=== PATIENT | male | born 1960 | race Caucasian/White ===

== ENCOUNTER 2018-07-15 10:06 | Inpatient (IN) | payer OTHER ==
--- NOTE | 2018-07-15 06:50 | PDHPUP ---
History & Physical Update H&P update statement: This history and physical update is based on an assessment of the patient which was completed after admission or registration (within 24 hours), but prior to the surgery/procedure. H&P update: H&P reviewed & patient examined, no change in patient's condition since H&P completed
[~2018-07-15 10:06] MED LIST: ceFAZolin 2 GM/DEXTROSE 100 ML IV SCH; diphenhydrAMINE 25 MG CAP PO PRN
[2018-07-15] MEDS ORDERED: GABAPENTIN 300 MG CAP PO ONE (10:16)
[2018-07-15] MEDS ORDERED: ceFAZolin 2 GM/DEXTROSE 100 ML IV ONE (10:16)
[2018-07-15] MEDS ORDERED: ACETAMINOPHEN 500 MG TAB PO ONE (10:16)
[2018-07-15] MEDS ORDERED: LIDOCAINE 1% 2 ML INJ ID PRN (10:19)
[2018-07-15] MEDS ORDERED: LR 1,000 ML IV ONE (10:19)
[2018-07-15] MEDS ORDERED: THROMBIN (BOVINE) 5,000 UNIT VIAL TP ONE (10:28)
[2018-07-15] MEDS ORDERED: BUPIVACAINE/EPI 0.25% 30 ML SDV ONE (10:28)
[2018-07-15] MEDS ORDERED: CHLORHEXIDINE GLUC HIBICLENS 118 ML BTL TP ONE (10:28)
[2018-07-15] MEDS ORDERED: BACITRACIN 50,000 UNITS/10 ML SYR IRR ONE (10:29)
[2018-07-15] MEDS ORDERED: morphINE PCA 30 MG/30 ML PCA IV PRN (12:04)
[2018-07-15] MEDS ORDERED: HYDROmorphONE/DILAUDID 1 MG/ML INJ IVP PRN (12:04)
[2018-07-15] MEDS ORDERED: POLYETHYLENE GLYCOL 3350 17 GM PKT PO PRN (12:04)
[2018-07-15] MEDS ORDERED: NALOXONE HCL 0.4 MG/ML INJ IVP PRN ×2 (12:04→16:36)
[2018-07-15] MEDS ORDERED: BISACODYL 10 MG SUPP PR PRN (12:04)
[2018-07-15] MEDS ORDERED: HYDROCODONE/APAP 5/325 TAB PO PRN (12:04)
[2018-07-15] MEDS ORDERED: LACTULOSE 20 GM/30 ML UDCUP PO PRN (12:04)
[2018-07-15] MEDS ORDERED: ONDANSETRON DISINTEGRATING 4 MG TAB PO PRN (12:04)
[2018-07-15] MEDS ORDERED: ONDANSETRON 4 MG/2 ML VIAL IVP PRN ×2 (12:04→16:36)
[2018-07-15] MEDS ORDERED: MIDAZOLAM 2 MG/2 ML VIAL IVP ONE (12:06)
--- NOTE | 2018-07-15 12:07 | PDANEPAE ---
ANE Past Medical History - Cardiovascular History Hx Hypertension: Yes Hx Arrhythmias: No Hx Chest Pain: No Hx Coronary Artery / Peripheral Vascular Disease: No Hx CHF / Valvular Disease: No Hx Palpitations: No - Pulmonary History Hx COPD: No Hx Asthma/Reactive Airway Disease: No Hx Recent Upper Respiratory Infection: Yes Hx Oxygen in Use at Home: No Hx Sleep Apnea: No Sleep Apnea Screening Result - Last Documented: Positive Pulmonary History Comment: SINUS INFECTION 03/2018 - Neurologic History Hx Cerebrovascular Accident: No Hx Seizures: No Hx Dementia: No - Endocrine History Hx Diabetes: No Hypothyroid: No Hyperthyroid: No Obesity: no - Renal History Hx Renal Disorders: No - Liver History Hx Hepatic Disorders: No - Neurological & Psychiatric Hx Hx Neurological and Psychiatric Disorders: Yes Neurological / Psychiatric History Comment: PANIC ATTACKS. ANXIETY - Cancer History Hx Cancer: No - Congenital Disorder History Hx Congenital Disorders: No - GI History Hx Gastrointestinal Disorders: Yes Gastrointestinal History Comment: ACID REFLUX WILL USE OTC - Other Health History Other Health History: CAPPED FRONT TEETH. DDD/STENOSIS. N/T MONCHO LEGS/FEET - Chronic Pain History Chronic Pain: Yes (LOWER BACK,SCIATICA,BACK OF BOTH LEGS) - Surgical History Prior Surgeries: TONSILLECTOMY ANE Review of Systems Review of Systems: - Exercise capacity METS (RN): 4 METS ANE Patient History - Allergies Allergies/Adverse Reactions: No Known Allergies Allergy (Verified 06/18/18 15:44) - Home Medications Home Medications: ALPRAZolam [Xanax 0.5 MG (*)] 0.5 mg PO DAILY PRN 06/18/18 [Last Taken 07/15/18 09:45] Lisinopril [Zestril 10 mg (*)] 10 mg PO DAILY 06/18/18 [Last Taken 1 Day Ago ~] Testosterone IM [Testosterone 100mg/ml IM inj (*)] 100 mg IM Q7D 06/18/18 [Last Taken 07/05/18] Zolpidem Tartrate [Ambien] 10 mg PO HS PRN 06/18/18 [Last Taken 1 Day Ago ~07/14] diphenhydrAMINE [Benadryl 25 MG (*)] 25 mg PO Q6H PRN 06/18/18 [Last Taken 1 Day Ago ~07/14/18] traMADol [Ultram 50 mg (*)] 50 mg PO DAILY PRN 06/18/18 [Last Taken 1 Day Ago ~ 07/14/18] - NPO status NPO Since - Liquids (Date): 07/15/18 NPO Since - Liquids (Time): 00:00 NPO Since - Solids (Date): 07/14/18 NPO Since - Solids (Time): 17:00 - Smoking Hx Smoking Status: Never smoked ANE Labs/Vital Signs - Vital Signs Blood Pressure: 124/95 Heart Rate: 88 Respiratory Rate: 18 O2 Sat (%): 98 Height: 173.99 cm Weight: 77.111 kg ANE Physical Exam - Airway Neck exam: FROM Mallampati Score: Class 1 Mouth exam: normal dental/mouth exam - Pulmonary Pulmonary: no respiratory distress - Cardiovascular Cardiovascular: regular rate and rhythym - ASA Status ASA Status: II ANE Anesthesia Plan Anesthesia Plan: general endotracheal anesthesia
[2018-07-15] MEDS ORDERED: PROPOFOL/EMULSION 500 MG/50 ML BOTTLE IV ONE (12:22)
[2018-07-15] MEDS ORDERED: ROCURONIUM 100 MG/10 ML VIAL ONE (12:23)
[2018-07-15] MEDS ORDERED: fentaNYL 250 MCG/5 ML INJ ONE (12:23)
[2018-07-15] MEDS ORDERED: LIDOCAINE 2% 100 MG/5 ML SYR ONE (12:23)
[2018-07-15] MEDS ORDERED: DEXAMETHASONE 4 MG/ML VIAL ONE (12:23)
[2018-07-15] MEDS ORDERED: ONDANSETRON 4 MG/2 ML VIAL ONE (12:23)
[2018-07-15] MEDS ORDERED: REMIFENTANIL HCL 1 MG VIAL ONE ×2 (12:23→16:28)
[2018-07-15] MEDS ORDERED: PROPOFOL 200 MG/20 ML VIAL ONE ×3 (12:28→16:27)
[2018-07-15] MEDS ORDERED: GLYCOPYRROLATE 0.2 MG/1 ML VIAL ONE (13:42)
[2018-07-15] MEDS ORDERED: ceFAZolin 1 GM VIAL ONE (16:33)
[2018-07-15] MEDS ORDERED: LR 500 ML IV PRN (16:36)
[2018-07-15] MEDS ORDERED: PROMETHAZINE HCL 25 MG/ML INJ IVP PRN (16:36)
--- NOTE | 2018-07-15 17:07 | POSTOPPROG ---
Post Op Note Date of Operation: 07/15/18 Surgeon: Alexy Munroe Family Services Assistant: DONA Joiner Anesthesiologist: Sameer Anesthesia: GET(General Endotracheal), Local (Specify) Pre-op Diagnosis: lumbar stenosis L3/4 and L4/5 Post-op Diagnosis: lumbar stenosis L3/4 and L4/5 Indication: LLE pain, lumbar stenosis Procedure: L3/4 and L4/4 TLIF Findings: see op note Inf/Abcess present in the surg proc area at time of surgery?: No Depth: Deep Incisional (Fascial) EBL: 100-500 Total fluids administered: see anesthesia record Complications: none Drains: Omid Buck
--- NOTE | 2018-07-15 17:07 | PDMN ---
Medical Necessity Medical necessity: [facility]: S820 lumbar fusion-3 days - OP: L3/4,L4/5 TLIF -[facility]# [id number] APPROVED FOR INPATIENT SURGERY FOR DOS 07/15/18-07/16/18.
--- NOTE | 2018-07-15 17:11 | SOAPPROG ---
SOAP Progress Note Assessment/Plan: Post Op Visit: S: Awake and alert. NAD. Pt with expected lower back pain O: AFVSS/PERRLA/EOMI no droop CN 2-12 grossly intact +lt touch 5/5 BUE/BLE = CDI ANGELES in place A/P: 58 yo male that is s/p TLIF L3/4 and L4/5 -orders in place -call with any questions or concerns -take medications as directed -pt seen by Dr Munroe as well -brace when out of bed Objective: Vital Signs Temp Pulse Resp BP Pulse Ox 36.4 C 88 18 124/95 H 98 07/15/18 10:44 07/15/18 12:06 07/15/18 12:06 07/15/18 12:06 07/15/18 12:06 ICD10 Worksheet Patient Problems: Problems Problem Status Onset Arthrodesis status Acute Lumbar radicular pain Acute Lumbar stenosis Acute - ICD10 Problem Qualifiers (1) Lumbar stenosis (2) Lumbar radicular pain (3) Arthrodesis status
[2018-07-15] MEDS ORDERED: LABETALOL HCL 5 MG/ML 20 ML MDV ONE (17:12)
[2018-07-15] MEDS ORDERED: fentaNYL 100 MCG/2 ML INJ ONE ×2 (17:12→17:33)
--- NOTE | 2018-07-15 17:13 | POSTANESTH ---
Post Anesthetic Evaluation Cardiovascular Status: Normal, Stable, Tx Hyper/Hypo-tension Respiratory Status: Normal, Stable Level of Consciousness/Mental Status: Can Participate in Eval Pain Control: Adequate, Prn Tx Ordered Nausea/Vomiting Control: Adequate, Prn Tx Ordered Complications Possibly Related to Anesthesia: None Noted
[2018-07-15] MEDS: fentaNYL 100 MCG/2 ML INJ IVP PRN ×3 (17:18→17:34)
[2018-07-15] MEDS ORDERED: LABETALOL HCL 5 MG/ML 20 ML MDV IVP PRN (17:28)
[2018-07-15] MEDS ORDERED: METHOCARBAMOL 750 MG TAB ONE (17:33)
[2018-07-15] MEDS: METHOCARBAMOL 750 MG TAB PO PRN (17:40)
[2018-07-15] MEDS ORDERED: ceFAZolin 2 GM/DEXTROSE 100 ML IV SCH (18:00)
--- NOTE | 2018-07-15 19:07 | GOP ---
DATE OF OPERATION: 07/15/2018 SURGEON: Florina Munroe MD CELEBRITY MANAGER: Jonnie Joiner PA-C PREOPERATIVE DIAGNOSIS: Lumbar spondylosis with a minimal lumbar degenerative scoliotic curve, lumba r facet arthropathy, lumbar severe foraminal stenosis (left L4-5), lumbar stenosis, lumbar disk degen erative disease, L3-4 and L4-5. POSTOPERATIVE DIAGNOSIS: Lumbar spondylosis with a minimal lumbar degenerative scoliotic curve, lumb ar facet arthropathy, lumbar severe foraminal stenosis (left L4-5), lumbar stenosis, lumbar disk dege nerative disease, L3-4 and L4-5. PROCEDURE PERFORMED: Posterolateral and intervertebral arthrodesis with decompressions bilaterally a t L3-4 and L4-5 ([id number] and [id number]); posterior segmental instrumentation L3, L4, L5; placement of biome chanical intervertebral device L3-4 and L4-5 (79180 x 2); spinal stereotactic, same incision bone gra ft harvest, microscope. FINDINGS: ESTIMATED BLOOD LOSS: 400 cc. INDICATIONS: The patient is a 58-year-old gentleman with terrible pain in the left leg. His MRI dem onstrated evidence of severe disk degenerative disease at L3-4, with a slightly right-sided tilt at L 3-4, but there was a large central prolapsed disk at that level with severe DDD, creating bilateral r ecess stenosis at L3-4. He also had bad facet arthropathy with excessive fluid in the facet joints a t L3-4 and L4-5. His MRI also showed degenerative L4-5 tilt to the left-hand side, with a prolapse o f the disk into the L4-5 neural foramen on the left, as well as lateral recess stenosis. There was s evere associated foraminal stenosis. I suggested a 2-level fusion based upon his disk disease and hi s terrible foraminal stenosis at L4-5. I was not going to be capable of doing a radical foraminal de compression of the exiting L4 root, which I thought was his most symptomatic level, without completel y removing the facet joint on the left at L4-5, destabilizing the spine. I was not comfortable doing this in the context of the changes already present at L3-4, as well as the stenosis at L3-4 and the severe disk degenerative disease, and I suggested decompression and fusion at that level as well. Th is would also allow us to open up the neural foramen and get some distraction of his disk space and r estoration of his lumbar lordosis at that level, at least that was the hope. The risk of continued s ymptoms, nerve injury, spinal fluid leak, screw and hardware malfunction, malposition, nerve injury, pseudoarthrosis, adjacent segment disease, and the possible need for future surgery at the surroundin g areas of the spine were discussed. He knew that sometimes revision surgery at the same area of the spine is necessary. He wanted to proceed despite these risks. DESCRIPTION OF PROCEDURE: The patient was taken to the operating room and placed in the supine posit ion. General anesthesia was begun. He was flipped prone onto the Omid table. Care was taken to pad all points of contact. His back was sterilely prepped and draped in the usual fashion. A locali zing x-ray was taken, and a midline incision was about 6 cm in length. The subcutaneous tissue was d issected using Bovie cautery, down through the fascia, and a subperiosteal dissection was made down t he lamina of L3, 4 and 5. A self-retaining retractor was placed. He had a lumbarized S1 vertebral b ziyad. Based upon that numbering scheme, we did an L3-4 and L4-5 fusion. We exposed L3-4 and L4-5. S hot-localizing x-rays denuded the bilateral facet joints at L3-4 and L4-5. We preserved the L2-3 fac et joint. There was a massive amount of fluid, particularly on the right-hand side at L3-4 in the fa cet joint, but there was also exuberant synovial fluid present at L4-5. After denuding the joints, w suellen then attached a stealth reference frame to the spinous process, performed an O-arm spin, and using frameless Stealth stereotaxy, we placed pedicle screws bilaterally at L3, L4, and L5. They all stimu lated at acceptable levels. The screw that stimulated the lowest was the right L3 screw, which was b ordering the L3 medial pedicle border. We did 3D imaging and it appeared to be in excellent position . It stimulated at a threshold of 12, which was considered acceptable, and the imaging characteristi cs of the screw were also favorable. Again, we did 3D O-arm imaging of the screw, and it appeared to be an excellent screw. We then placed rods down over the screws distracted on the right-hand side a t L3-4 and on the left-hand side at L4-5, and got spiritism of some lumbar lordosis as well as a re duction of his scoliotic curve at L3-4 and L4-5. With this technique, we final tightened the cap scr ews according to company specification, removed the soft tissue of the bone at L3-4 and L4-5, removed the entire L4 spinous process, part of the L3 spinous process, and drilled bilateral laminectomies a t L3-4 and L4-5, and harvested this bone for autologous grafting purposes. We opened the ligamentum flavum and performed bilateral decompressions at L3-4 and L4-5. We got great decompressions on each side. There was severe stenosis, both on the right and on the left, but we did complete facetectomie s on the left-hand side, and radically decompressed the exiting L3 root at L3-4 and the exiting L4 ro ot at L4-5, where indeed there was foraminal disk material in the neural foramen at L4-5. We cleaned all this out. We then swept the L5 nerve root medially, incised the disk, and removed the disk and the cartilaginous endplates. We roughened the subchondral bone to create arthrodesis at L4-5. Likemaricel issuellen, we did at L3-4, where we incised the disk, removed the disk, and the cartilaginous endplates and roughened the subchondral bone to create arthrodesis there. We packed bone autograft and BMP in bot h of the disk spaces, followed by an expandable 7 x 23 mm device. It was expanded under fluoroscopic guidance, and we achieved great position of the devices. There was a small amount of bleeding from the left foramen at L3-4; it was an epidural vein underneath the thecal sac; we placed a tiny piece o f Gelfoam underneath that. Then, we decorticated all the remaining bone posterolaterally bilaterally and placed a small piece of BMP and bone autograft posterolaterally bilaterally. We placed a subfas cial drain, and then closed the incision in multiple layers using Vicryl sutures. Steri-Strips were applied to the skin. The patient was reversed from anesthesia, extubated, and transferred to the rec overy room in stable condition. There were no complications. COMPLICATIONS: None. /[id number]/MODL
[2018-07-15] MEDS: ACETAMINOPHEN 500 MG TAB PO SCH ×2 (19:13→21:17)
[2018-07-15] MEDS: GABAPENTIN 300 MG CAP PO SCH ×2 (19:13→21:17)
[2018-07-15] MEDS: LISINOPRIL 10 MG TAB PO SCH (19:13)
[2018-07-15] MEDS: oxyCODONE IR 5 MG TAB PO PRN ×2 (19:31→20:30)
[2018-07-15] MEDS: FAMOTIDINE 20 MG TAB PO SCH (20:30)
[2018-07-15] MEDS: SENNOSIDES/DOCUSATE SODIUM TAB PO SCH (20:31)
[2018-07-15] MEDS: ZOLPIDEM TARTRATE 5 MG TAB PO PRN (21:17)
[2018-07-15] MEDS: NS 1,000 ML IV SCH (23:11)
[2018-07-15] MEDS: ceFAZolin 2 GM/DEXTROSE 100 ML IV SCH (23:11)
[2018-07-16] MEDS: oxyCODONE IR 5 MG TAB PO PRN ×5 (03:27→22:03)
[2018-07-16] MEDS: METHOCARBAMOL 750 MG TAB PO PRN ×2 (03:27→10:58)
[2018-07-16] MEDS ORDERED: NS 500 ML IV ONE (03:30)
[2018-07-16 04:45] LABS: PLATELET COUNT 158 10^3/uL (150-400)
[2018-07-16] MEDS: ACETAMINOPHEN 500 MG TAB PO SCH ×3 (05:34→22:01)
[2018-07-16] MEDS: GABAPENTIN 300 MG CAP PO SCH ×3 (05:35→22:00)
[2018-07-16] MEDS: NS 1,000 ML IV SCH (05:37)
--- NOTE | 2018-07-16 07:30 | NEUSURGPN ---
Date of Surgery: 07/15/18 Post Op Day: 1 Assessment/Plan: Assessment: 58 yo male that is s/p TLIF L3/4 and L4/5 POD#1 Plan: -ANGELES to bulb suction, leave in today. ANGELES output 405ml since surgery -H/H 33/11 this am. Patient was given 500ml NS bolus last night for mild hypotension. Doing well this am. Not symptomatic. -PT/OT -Pain management -Post op xrays pending -brace on when out of bed Patient was seen by Dr Munroe Please contact neurosurgery with any questions/concerns Subjective: toes are tingling, thinks this is related to NISREEN carmencitae Objective: AxO x4 MAEx4 5/5 BUE, BLE sensation intact to light touch BLE Dressing/incision CDI ANGELES patent Neuro Check Frequency: per routine Urinary Catheter in Place: No Catheter Insertion Date: 07/15/18 - Physician Discussed Patient with : Ludwig Patient Seen by : Ludwig Neurosurgery Physical Exam - Vitals, I&O, Labs I and O 07/15/18 07/16/18 07/17/18 05:59 05:59 05:59 Intake Total 6150 Output Total 1230 Balance 4920 Weight 77.111 kg Intake: Oral (ml) 1900 IV Intake (ml) 2700 IV Infused (ml) 1550 Lr 500 ml @ Wide Open IV 500 PRN PRN Rx#:[id number] Ns 1,000 ml @ 75 mls/hr 950 IV CONT MAKSIM Rx#: [id number] ceFAZolin 2 GM/DEXTROSE 100 100 ml @ 200 mls/hr IV ONCALL ONE Rx#:[id number] Output: Urine (ml) 425 Catheter 425 Estimated Blood Loss (ml) 400 ANGELES Drain Output (ml) 405 Left Posterior Back 405 Omid Buck Vital Signs Temp Pulse Resp BP Pulse Ox 36.8 C 77 16 83/62 L 92 07/16/18 03:06 07/16/18 03:06 07/16/18 03:06 07/16/18 03:06 07/16/18 03:06 Laboratory Results 07/16/18 04:24 07/16/18 04:24 ICD10 Worksheet Patient Problems: Problems Problem Status Onset Arthrodesis status Acute Lumbar radicular pain Acute Lumbar stenosis Acute
[2018-07-16] MEDS: ceFAZolin 2 GM/DEXTROSE 100 ML IV SCH (08:07)
[2018-07-16] MEDS: LISINOPRIL 10 MG TAB PO SCH (08:39)
[2018-07-16] MEDS: SENNOSIDES/DOCUSATE SODIUM TAB PO SCH ×2 (08:39→22:01)
[2018-07-16] MEDS: FAMOTIDINE 20 MG TAB PO SCH ×2 (08:39→22:01)
[2018-07-16] MEDS: traMADol 50 MG TAB PO PRN (10:58)
--- NOTE | 2018-07-16 16:01 | ASMTCMCOM ---
CM Note CM Note Notes: Pt had planned surgery for stenosis, DDD. PT/OT rec home health. Spoke with pt and , they will discuss and let CM know if they want HHC. Pt Arsenio address is in [facility], [facility] does not service. Spoke with Tianna at [facility], they services pt address. D/c plan of care: Pt will decide if he wants HHC PT/OT Date Signed: 07/16/2018 04:00 PM Electronically Signed By:JD Singh
[2018-07-16] MEDS: ALPRAZolam 0.5 MG TAB PO PRN (22:01)
[2018-07-17] MEDS: ZOLPIDEM TARTRATE 5 MG TAB PO PRN ×2 (00:15→20:57)
[2018-07-17] MEDS: traMADol 50 MG TAB PO PRN ×2 (00:15→17:55)
[2018-07-17] MEDS: METHOCARBAMOL 750 MG TAB PO PRN ×4 (00:16→17:52)
[2018-07-17] MEDS: oxyCODONE IR 5 MG TAB PO PRN ×5 (02:40→20:58)
[2018-07-17] MEDS: MAGNESIUM HYDROXIDE 30 ML UDCUP PO PRN ×2 (06:46→06:48)
[2018-07-17] MEDS: GABAPENTIN 300 MG CAP PO SCH ×3 (06:47→20:57)
[2018-07-17] MEDS: ACETAMINOPHEN 500 MG TAB PO SCH ×3 (06:47→20:58)
[2018-07-17] MEDS: FAMOTIDINE 20 MG TAB PO SCH ×2 (07:38→20:59)
[2018-07-17] MEDS: LISINOPRIL 10 MG TAB PO SCH (07:38)
[2018-07-17] MEDS: SENNOSIDES/DOCUSATE SODIUM TAB PO SCH ×2 (07:38→20:58)
[2018-07-17] MEDS: ALPRAZolam 0.5 MG TAB PO PRN (07:42)
--- NOTE | 2018-07-17 10:41 | NEUSURGPN ---
Assessment/Plan: Assessment: 58 yo male that is s/p TLIF L3/4 and L4/5 POD#2 Plan: -ANGELES will d/c today -PT/OT -Pain management -Post op xrays pending -brace on when out of bed -Please contact neurosurgery with any questions/concerns Subjective: SOme low back pain, tolerable with medications. Objective: AxO x4 MAEx4 5/5 BUE, BLE sensation intact to light touch BLE Dressing/incision CDI Catheter Insertion Date: 07/15/18 - Physician Discussed Patient with : Rodolfo Neurosurgery Physical Exam - Vitals, I&O, Labs I and O 07/16/18 07/17/18 07/18/18 05:59 05:59 05:59 Intake Total 6150 1250 Output Total 1230 3770 375 Balance 4920 -2520 -375 Weight 77.111 kg Intake: Oral (ml) 1900 1050 IV Intake (ml) 2700 IV Infused (ml) 1550 200 Lr 500 ml @ Wide Open IV 500 PRN PRN Rx#:[id number] Ns 1,000 ml @ 75 mls/hr 950 100 IV CONT MAKSIM Rx#: [id number] ceFAZolin 2 GM/DEXTROSE 100 100 100 ml @ 200 mls/hr IV ONCALL ONE Rx#:[id number] Output: Urine (ml) 425 3500 350 Catheter 425 Urinal 3500 350 Estimated Blood Loss (ml) 400 ANGELES Drain Output (ml) 405 270 25 Left Posterior Back 405 270 25 Omid Buck Other: Intake Quantity Yes Sufficient Number of Voids Urinal 2 Vital Signs Temp Pulse Resp BP Pulse Ox 36.8 C 75 18 104/66 99 07/17/18 07:35 07/17/18 07:35 07/17/18 07:35 07/17/18 07:35 07/17/18 07:35 Laboratory Results 07/16/18 04:24 07/16/18 04:24 ICD10 Worksheet Patient Problems: Problems Problem Status Onset Arthrodesis status Acute Lumbar radicular pain Acute Lumbar stenosis Acute
[2018-07-18] MEDS: GABAPENTIN 300 MG CAP PO SCH ×2 (04:24→14:43)
[2018-07-18] MEDS: ACETAMINOPHEN 500 MG TAB PO SCH ×2 (04:25→14:43)
[2018-07-18] MEDS: oxyCODONE IR 5 MG TAB PO PRN ×3 (04:25→12:20)
[2018-07-18 08:04] VITALS: BP 123/80
[2018-07-18] MEDS: LISINOPRIL 10 MG TAB PO SCH (08:12)
[2018-07-18] MEDS: FAMOTIDINE 20 MG TAB PO SCH (08:12)
[2018-07-18] MEDS: METHOCARBAMOL 750 MG TAB PO PRN ×2 (08:12→14:45)
[2018-07-18] MEDS: SENNOSIDES/DOCUSATE SODIUM TAB PO SCH (08:13)
[2018-07-18] MEDS ORDERED: ENOXAPARIN 40 MG/0.4 ML SYR SC SCH (09:00)
--- NOTE | 2018-07-18 09:15 | NEUSURGPN ---
Assessment/Plan: 58 yo male that is s/p TLIF L3/4 and L4/5 POD#3 Plan: -ANGELES out yesterday -PT/OT, likely once more before dc -Pain management -Post op xrays look great -brace on when out of bed -home later today -Please contact neurosurgery with any questions/concerns Subjective: doing well, has a cramp in right thigh this am, but no other issues. Objective: NAD EOMI, PEARLA AAOx2 speech clear and fluent MAEx4, 5/5= SILT INcision dressed, Clean and dry Catheter Insertion Date: 07/15/18 - Physician Discussed Patient with : Ludwig Neurosurgery Physical Exam - Vitals, I&O, Labs I and O 07/17/18 07/18/18 07/19/18 05:59 05:59 05:59 Intake Total 1250 1500 Output Total 3770 735 Balance -2520 765 Intake: Oral (ml) 1050 1500 IV Infused (ml) 200 Ns 1,000 ml @ 75 mls/hr 100 IV CONT MAKSIM Rx#: [id number] ceFAZolin 2 GM/DEXTROSE 100 100 ml @ 200 mls/hr IV ONCALL ONE Rx#:[id number] Output: Urine (ml) 3500 650 Toilet 300 Urinal 3500 350 ANGELES Drain Output (ml) 270 85 Left Posterior Back 270 85 Omid Buck Other: Intake Quantity Yes Yes Sufficient Output Comment Toilet per patient Number of Voids Toilet 1 Urinal 2 Number of Stools Toilet 2 Vital Signs Temp Pulse Resp BP Pulse Ox 36.8 C 81 16 123/80 H 95 07/18/18 08:00 07/18/18 08:00 07/18/18 08:00 07/18/18 08:00 07/18/18 08:00 Laboratory Results 07/16/18 04:24 07/16/18 04:24 ICD10 Worksheet Patient Problems: Problems Problem Status Onset Arthrodesis status Acute Lumbar radicular pain Acute Lumbar stenosis Acute
--- NOTE | 2018-07-18 10:43 | PDIAF ---
- Diagnosis Diagnosis: fusion of spine Code Status: Full Code - Medication Management Discharge Medications: electronically signed and located in the Home Medication List. - Orders Services needed: Physical Therapy, Occupational Therapy Diet Recommendation: no restrictions on diet Additional Instructions: please print DC instruction from [facility] - Follow Up Care Current Providers and Referrals: JODEE LLANES [Primary Care Provider] -
--- NOTE | 2018-07-18 11:03 | ASDISCHSUM ---
Discharge Information Plan Status:Home with Home Health Medically Cleared to Leave:07/17/2018 Discharge Date:07/17/2018 CM D/C Disposition:Home Health Service ADT D/C Disposition:Home, Routine, Self-Care Projected Discharge Date:07/17/2018 11:00 AM Transportation at D/C:Family Discharge Delay Reason: Follow-Up Date:07/17/2018 11:00 AM Discharge Slot: Final Diagnosis:Foraminal Stenosis Placement Information Referral Type:*Home Health Care Services Referral ID:[id number] Provider Name:[facility] Address 1:[address] [place] [address] Address 2: City:[place] Selection Factors: State:[place] Patient Contact Information Contact Name:SOLEDAD Relationship: Address:[address] [place] [address] Work Phone: [facility] Phone: [facility]/Zip Code:[place] [address] Email: Financial Information Financial Class:HMO and PPO Plans Primary Plan Desc:[employer] Primary Plan Number:[id number] Secondary Plan Desc: Secondary Plan Number: Assessment Information LACE LACE Length of stay for Answers: 2 days current admission Acuity / Level of Answers: Yes Care: Did the patient have an inpatient admission? Comorbidities - select Answers: Other Notes: foraminal stenosis all that apply # of Emergency department Answers: 0 visits in the last 6 months Score: 6 Date Signed: 07/18/2018 11:02 AM Electronically Signed By:Chloe Trujillo [facility] CM Progress Note CM Note CM Note Notes: Pt had planned surgery for stenosis, DDD. PT/OT rec home health. Spoke with pt and , they will discuss and let CM know if they want HH. Pt Arsenio address is in [facility], [facility] does not service. Spoke with Tianna at [facility], they services pt address. D/c plan of care: Pt will decide if he wants HHC PT/OT Date Signed: 07/16/2018 04:00 PM Electronically Signed By:JD Singh Case Management Discharge Plan Note Case Management Discharge Discharge Order Complete? Answers: Yes Patient to Obtain Answers: via Family Medications Transportation Arranged Answers: Family/Friends Transport will Pick (Date 07/18/2018 12:00 AM & Time) Faxed Final Orders Answers: Yes Agency/Facility Transfer Answers: Yes Report Printed & Faxed to Receiving Agency Family Notified Answers: Yes Notes: by phone Discharge Comments Notes: Spoke with RN, pt in the room and with on the phone per pt's request for her to be the decision maker. is requesting home health through [facility] who may not have a PT available until . informed and is comfortable with this plan. Referrals sent. No further CM needs noted at this time. Date Signed: 07/18/2018 11:01 AM Electronically Signed By:Chloe Trujillo Intervention Information
[2018-07-18] MEDS: traMADol 50 MG TAB PO PRN (14:46)
--- NOTE | 2018-07-20 15:22 | GDS ---
PRIMARY DIAGNOSES: Lumbar spondylosis with minimal lumbar degenerative disk scoliotic curve, lumbar facet arthropathy, lumbar severe foraminal stenosis left L4-5, lumbar stenosis, lumbar degenerative d isk disease at L3-4, L4-5. OPERATION/PROCEDURES: Posterior lateral intervertebral arthrodesis and decompression bilaterally at L3-4 and L4-5, posterior segmental instrumentation, L3, L4, L5, placement of biomechanical interverte bral device at L3-4, L4-5, spinal stereotaxy with same incision bone graft harvest occurred with Dr. Rodriguez Munroe at [facility] on 07/15/2018. HOSPITAL COURSE: The patient is a 58-year-old gentleman with terrible pain in the left leg preoperat ively. His MRI demonstrated evidence of severe disk disease at L3-4 with a slight right-sided tilt a t L3-4. There was a large central prolapsed disk at that level and severe degenerative disk disease at that level as well. This created bilateral recess stenosis at L3-4. He also had facet arthropath y and excessive fluid collection in the facet joints at both 3-4 and 4-5. MRI showed a degenerative tilt at L4-5. This was tilted to the left side, and there was again a prolapsed disk at that level. Patient had failed to improve with conservative management and he elected to proceed with surgery. He underwent the above-mentioned procedure on 07/15/2018, and tolerated it well. He was admitted pos toperatively. Postoperative day #1 on 07/16/2018, he underwent x-rays of the lumbar spine, which showed segmentatio n variation with rudimentary disk at S1-S2 level, but there was new well-seated posterior fusion cons truct extending from L3 to L5. The patient was seen on a daily basis. He worked with PT and OT. On 07/18/2018, he met criteria for discharge. His ANGELES was placed intraoperatively and removed. PT, OT had worked with him and cleared him for discharge. He was doing well with current pain management [facility]. His x-rays were reviewed with Dr. Munroe, as well as the patient. He will follow up with us likely in 2 weeks for postoperative check. CONSULTS: None. COMPLICATIONS: None. DISCHARGE CONDITION: Stable and improved. DISCHARGE INSTRUCTIONS: Standard discharge instructions given the patient following a lumbar fusion. We talked about worsening symptoms, new pain, weakness, numbness, tingling, loss of bowel or bladde r control, problems with gait or balance. Follow up with us likely in 2 weeks for postoperative chec k and then at 2 months with x-rays, 3 to 6 months, 9 months to a year, a year and a half, and 2 years with x-rays when clinically appropriate. All questions and concerns were answered. Patient underst ands and agrees. /[id number]/MODL
== END 2018-07-18 15:15 | disposition home health service (06) | DRG 455 ==
LOC: F3N 10:06
PROVIDERS: ADMIT Neurological Surgery; ATTEND Neurological Surgery
DX: M47.26 Other spondylosis with radiculopathy, lumbar region (principal); M51.16 Intervertebral disc disorders with radiculopathy, lumbar region; I10 Essential (primary) hypertension; F41.0 Panic disorder [episodic paroxysmal anxiety]; K21.9 Gastro-esophageal reflux disease without esophagitis
CPT/HCPCS: 97116-GP; 97161-GP; 97166-GO; 97535-GO; C1713; J0690; J1100; J1170; J1650; J2001; J2250; J2270; J2405; J2704; J3010